=== PATIENT | male | born 2000 | race Caucasian/White ===

== ENCOUNTER 2021-04-08 09:35 | Emergency (ER) | payer SELFPAY ==
[~2021-04-08] VITALS: Wt 68.0 kg
[~2021-04-08 09:35] MED LIST: ATARAX25 MG PO; NKHM; PREDNICOT20 MG PO
== END 2021-04-08 11:22 | disposition left against medical advice (07) ==
LOC: ED 09:35
DX: Z53.21 Procedure and treatment not carried out due to patient leaving prior to being seen by health care provider (principal)

== ENCOUNTER 2022-03-20 09:53 | Emergency (ER) | payer BC ==
[~2022-03-20] VITALS: Ht 180.3 cm; Wt 72.6 kg
== END 2022-03-20 11:37 | disposition left against medical advice (07) ==
LOC: ED 09:53
DX: M54.9 Dorsalgia, unspecified (principal); Z53.21 Procedure and treatment not carried out due to patient leaving prior to being seen by health care provider